=== PATIENT | male | born 1955 | race Caucasian/White ===

== ENCOUNTER 2021-03-28 10:44 | Day surgery (SDC) | payer MEDICARE, BC ==
[2021-03-28] VITALS (12 sets, daily range): BP systolic 113–156; BP diastolic 72–83
[~2021-03-28] VITALS: Ht 175.3 cm; Wt 89.1 kg
[2021-03-28] MEDS ORDERED: normal saline 1000ml 1,000 ML IV SCH (11:05)
[2021-03-28] MEDS ORDERED: MIDAZolam 1mg/ml 10ml vial IV ONE (11:05)
[2021-03-28] MEDS ORDERED: fentaNYL/PF 50MCG/1 ML 2ML syringe IV ONE (11:05)
[2021-03-28] MEDS ORDERED: TESTOSTERONE (11:18)
== END 2021-03-28 16:00 | disposition home or self-care (01) ==
LOC: SSTAY O 10:44
PROVIDERS: ATTEND Internal Medicine Interventional Cardiology
DX: Z03.89 Encounter for observation for other suspected diseases and conditions ruled out (principal); I08.3 Combined rheumatic disorders of mitral, aortic and tricuspid valves; I10 Essential (primary) hypertension; G47.33 Obstructive sleep apnea (adult) (pediatric); Z79.82 Long term (current) use of aspirin; Z79.899 Other long term (current) drug therapy
CPT/HCPCS: 93312; 93325; 94760; 94799; J2250; J3010; J7030